=== PATIENT | female | born 1945 | race Caucasian/White ===

== ENCOUNTER 2017-05-02 08:14 | Day surgery (SDC) | payer OTHER ==
[~2017-05-02 08:14] MED LIST: ALL220TA; NEXI20CA
[2017-05-02] MEDS ORDERED: ATOR40TA16 PO (08:37)
[2017-05-02] MEDS ORDERED: areds (08:37)
[2017-05-02] MEDS ORDERED: POTA-243 PO (08:37)
[2017-05-02] MEDS ORDERED: HYDR-3516 PO (08:37)
[2017-05-02] MEDS ORDERED: ASPI-147 PO (08:37)
[2017-05-02] MEDS ORDERED: CLAR10CA3 PO (08:37)
[2017-05-02] MEDS ORDERED: OMEP40CA2 PO (08:37)
[2017-05-02] MEDS ORDERED: FURO20TA PO (08:37)
[2017-05-03] MEDS ORDERED: NEXI20CA PO (07:26)
[2017-05-03] MEDS ORDERED: PRESCAP PO (18:53)
== END 2017-05-02 08:49 | disposition home or self-care (01) ==
LOC: HROP 08:14 → HRIP 08:15 → HROP 08:49
PROVIDERS: ATTEND Surgery Vascular Surgery
DX: M79.622 Pain in left upper arm (principal); Z53.9 Procedure and treatment not carried out, unspecified reason

== ENCOUNTER 2017-05-03 07:09 | Day surgery (SDC) | payer OTHER ==
[~2017-05-03] VITALS: Ht 167.6 cm; Wt 78.2 kg
[2017-05-03] VITALS (15 sets, daily range): BP systolic 123–153; BP diastolic 53–76; PULSE 61–83; RESP 16–20; TEMP 97.6–98; O2SAT 92–99
[~2017-05-03 07:09] MED LIST changes: +ASPI-147 PO; +ATOR40TA16 PO; +CLAR10CA3 PO; +FURO20TA PO; +HYDR-3516 PO; +OMEP40CA2 PO; +POTA-243 PO; +areds
[2017-05-03] MEDS ORDERED: NEXI20CA PO (07:26)
[2017-05-03] MEDS ORDERED: SODIUM CHLOR 0.9% 1000 ML INJ 1,000 ML IV SCH ×2 (07:45→12:47)
[2017-05-03 08:20] LABS: INTERNATIONAL NORMALIZED RATIO 0.9 RATIO
[2017-05-03] MEDS ORDERED: fentaNYL CITRATE 250 MCG/5 ML AMP ONE (10:01)
[2017-05-03] MEDS ORDERED: MIDAZOLAM HCL 2 MG/2 ML VIAL ONE ×4 (10:01→11:59)
[2017-05-03] MEDS ORDERED: VERAPAMIL HCL 5 MG/2 ML VIAL ONE (10:02)
[2017-05-03] MEDS ORDERED: HEPARIN SODIUM - IV 10,000 UNITS/10 ML VIAL ONE (10:13)
[2017-05-03] MEDS ORDERED: NITROGLYCERIN 2% OINT 1 GM PACKET ONE (10:43)
[2017-05-03] MEDS ORDERED: PROTAMINE SULFATE 50 MG/5 ML VIAL ONE (12:28)
--- NOTE | 2017-05-03 12:50 | PD.RAD ---
Post Procedure Progress Note Pre Procedure Diagnosis: (1) Subclavian steal syndrome Post Procedure Diagnosis: (1) Subclavian steal syndrome Procedure Date: May 03, 2017 Supervising Radiologist: Bill Trujillo Proceduralist/Assist: Yasmeen Champion, RT(R)(CV), Yolanda Isabel RT(R)() Anesthesia: Conscious Sedation Plan of Activity Patient to Unit: ROPU Patient Condition: Good Additional Comments: Extended attempt at recanulating left subclavian stent without success. See PACS Report for procedural detail/treatment Bill Trujillo MD May 03, 2017 12:50
[2017-05-03] MEDS ORDERED: ACETAMINOPHEN 325 MG TAB PO PRN (13:00)
[2017-05-03] MEDS ORDERED: IOHEXOL 350 MG/ML 100 ML BTL (for RAD DIAG) OTHER ONE (13:23)
[2017-05-03] MEDS ORDERED: ACETAMINOPHEN/HYDROcodone 325 MG/10 MG TAB PO ONE (14:30)
--- NOTE | 2017-05-03 14:53 | RADRPT ---
EXAM DATE/TIME: 05/03/2017 09:17 [place] COMPARISON: No previous studies available for comparison. INDICATIONS : History of left arm claudication and subclavian steal status post stent placement at outside [facility] approximately [address] examination demonstrates occlusion of the stent and therefor e patient presents for possible reintervention MEDICAL HISTORY : 1. HTN 2. GERD 3.Lung Ca 4. Degenerative osteoarthritis 5. former smoker 6. PAD SURGICAL HISTORY : 1. Stent placment 2. C spine fusion 3. Lobectomy 4. Hysterectomy ENCOUNTER: Initial ACUITY: 1 year PAIN SCORE: 3/10 LOCATION: Left upper arm FLUORO TIME: 54.5 minutes IMAGE SERIES: 1 ACCESS SITE: Left Radial artery SEDATION TIME: 120 minutes CONTRAST: 1.) 20 cc Omnipaque (iohexol) 350 MEDICATION(S): 1.) 7.5 mg midazolam (Versed) IV 2.) 650 mcg fentanyl (Sublimaze) IV 3.) 8000 units Heparin IV DEVICE(S): 1.) Left radial artery radial compression band Patient was premedicated per protocol for underlying contrast media allergy. PROCEDURE : 1. Ultrasound-guided puncture of the left radial artery and left common femoral artery 2. Conscious sedation with continuous EKG and Oximetry monitoring. 3. Angiography of the left upper extremity 4. Extended unsuccessful recannulization attempt of left subclavian artery occluded stent The risks, benefits and alternatives to the procedure were explained and verbal and written consent w as obtained. The site was prepped in sterile fashion. Full sterile technique was used, including ca p, mask, sterile gloves and gown and a large sterile sheet. Hand hygiene and 2% chlorhexidine and/or betadine/alcohol prep was utilized per protocol for cutaneous antisepsis. The skin and subcutaneous tissues were infiltrated with local anesthetic solution. Patient passed a bubble test on the left. Ultrasound evaluation of the left radial artery demonstrate d the artery to be patent. Single image was obtained and placed in PACS archive. Micropuncture needle was advanced into the left radial artery under direct ultrasound guidance and subsequently exchanged for a slammed 6 Urdu sheath. A 4 Urdu Aubree catheter was then advanced into the central left sub clavian artery and left upper extremity angiography was performed. This confirms the presence of an o ccluded stent extending from the left subclavian artery to the origin of the left vertebral artery. M agnified fluoroscopic images of the stent demonstrates proximal to mid stent fracture. Next, followin g multiple attempts the proximal stent was traversed with a glide wire. However, numerous attempts to recannulate the mid to distal stent beyond the point of fracture were unsuccessful with wires passin g along the stent interstices despite easy reentry into the thoracic aorta. Multiple attempts with va rying wires and catheters yielded the same. Therefore, retrograde attempt was performed. Micropunctur e was advanced into the left common femoral artery under direct ultrasound guidance and subsequently 5 Urdu sheath placed into the proximal descending thoracic aorta. Multiple attempts to advance a gu idewire were unsuccessful primarily due to angulation and significant resistance within the stent. Th e procedure was terminated following an extended recannulization attempt. Left radial artery sheath w as removed and hemostasis obtained with a radial compression device. The femoral artery sheath was re moved and hemostasis obtained with manual compression. The patient tolerated the procedure well and there were no complications. Conscious sedation was performed with the prescribed dosages and duration as above in the presence of an independent trained radiology nurse to assist in the monitoring of the patient. EKG and oximetry remained stable throughout the procedure. CONCLUSION: 1. Angiography confirms CT findings of an occluded left subclavian artery stent with retrograde flow through the left vertebral artery. The stent appears to be fractured in the proximal to mid segment w hich may be the etiology for interval stent occlusion. 2. Numerous antegrade and retrograde recannulization attempts were unsuccessful primarily due to inab ility of intraluminal recannulization beyond the fractured portion. Bill Trujillo MD on May 03, 2017 at 14:13 Board Certified Radiologist. This report was verified electronically.
[2017-05-03] MEDS ORDERED: PRESCAP PO (18:53)
== END 2017-05-03 19:10 | disposition home or self-care (01) ==
LOC: HROP 07:09 → HRIP 07:10 → HROP 19:10
PROVIDERS: ATTEND Surgery Vascular Surgery
DX: T82.898A Other specified complication of vascular prosthetic devices, implants and grafts, initial encounter (principal); I73.9 Peripheral vascular disease, unspecified; G45.8 Other transient cerebral ischemic attacks and related syndromes; I10 Essential (primary) hypertension; E78.00 Pure hypercholesterolemia, unspecified; M19.90 Unspecified osteoarthritis, unspecified site; Z85.118 Personal history of other malignant neoplasm of bronchus and lung; Z98.1 Arthrodesis status
CPT/HCPCS: 36200; 36216; 75710; 76937; 85610; 85730; 99152; 99153; C1769; C1773; C1887; C1894; J1644; J2250; J2720; J3010; J7030; Q9967